=== PATIENT | female | born 1970 | race Caucasian/White ===

== ENCOUNTER → 2020-06-24 | Outpatient (CLI) | payer BC | LOC: M LABSMTC 13:46 | PROVIDERS: ATTEND Family Medicine | DX: Z20.822 Contact with and (suspected) exposure to COVID-19 (principal) ==

== ENCOUNTER → 2020-06-28 | Outpatient (CLI) | payer SELFPAY | LOC: M LABSMTC 12:49 | PROVIDERS: ATTEND Pediatrics | DX: Z20.828 Contact with and (suspected) exposure to other viral communicable diseases (principal) ==

== ENCOUNTER → 2020-11-10 | Outpatient (CLI) | payer BC ==
--- NOTE | 2020-11-10 09:36 | REP ---
INDICATION: PAIN,ACHILLES TENDINITIS COMPARISON: None. TECHNIQUE: AP, lateral, bilateral oblique views right foot. FINDINGS: The osseous structures and joint spaces are intact and normal. There is no evidence for acute fracture or dislocation. Surrounding soft tissues are unremarkable. No subcutaneous emphysema or radiodense foreign body. Lateral view demonstrates calcification at the Achilles tendinous insertion on the calcaneus. IMPRESSION: Subtle Achilles calcification at the insertion on the calcaneus. <Electronically signed by Vamsi Soares > 11/10/20 [id number]
== END ==
LOC: M WUC 09:08
PROVIDERS: ATTEND Physician Assistant
DX: M65.271 Calcific tendinitis, right ankle and foot (principal)

== ENCOUNTER → 2020-11-13 | Outpatient (CLI) | payer BC ==
--- NOTE | 2020-11-13 09:27 | REPVR ---
PROCEDURE INFORMATION: Exam: MR Right Lower Extremity Joint Without Contrast; Ankle Exam date and time: 11/13/2020 8:46 AM Age: 50 years old Clinical indication: Pain; Ankle; Right; Additional info: ? Achiles tendon tear, calcaneal spur, right foot TECHNIQUE: Imaging protocol: MR of the Right lower extremity without contrast. Exam focused on the ankle. COMPARISON: CR FOOT COMPLETE 11/10/2020 9:22 AM FINDINGS: Bones and cartilage: Sub adjacent bone marrow edema in the calcaneal tuberosity. Mild focal bone marrow edema involving anterior distal fibula. Joint spaces: No joint effusion. Bursae: There is retrocalcaneal bursitis. LIGAMENTS: Distal tibiofibular syndesmosis: Unremarkable. No tear. Anterior talofibular ligament: Unremarkable. No tear. Posterior talofibular ligament: Unremarkable. No tear. Calcaneofibular ligament: Unremarkable. No tear. Deltoid ligament complex: Unremarkable. No tear. TENDONS: Flexor tendons of foot: Unremarkable as visualized. Tibialis posterior tendon: Unremarkable as visualized. Peroneal tendons: Unremarkable as visualized. Extensor tendons of foot: Unremarkable as visualized. Tibialis anterior tendon: Unremarkable as visualized. Achilles tendon: Longitudinal partial tear of distal Achilles at the insertion. Retro Achilles inflammation and inflammation of the pre Achilles fat is noted. Tarsal canal (Sinus tarsi): Unremarkable. Normal signal of the fat. Tarsal tunnel: Unremarkable. Muscles: Unremarkable. Soft tissues: Unremarkable. Plantar fascia: There is mild insertional enthesopathy involving medial cord of the plantar fascia. IMPRESSION: Longitudinal partial tear of distal Achilles at the insertion with sub adjacent bone marrow edema at the calcaneal tuberosity. Retrocalcaneal bursitis. Retro Achilles inflammation and inflammation of the pre Achilles fat. Mild insertional enthesopathy involving medial cord of the plantar fascia. Electronically signed by: Kevin Hicks On 11/13/2020 09:27:27 AM
== END ==
LOC: M RAD 08:08
PROVIDERS: ATTEND Physician Assistant Surgical
DX: M77.31 Calcaneal spur, right foot (principal); S86.011A Strain of right Achilles tendon, initial encounter; X58.XXXA Exposure to other specified factors, initial encounter; Y92.9 Unspecified place or not applicable; M76.61 Achilles tendinitis, right leg

== ENCOUNTER → 2020-12-07 | Outpatient (CLI) | payer BC ==
[2020-12-07 18:48] LABS: ALBUMIN 4.2 GM/DL (3.2-5.2); ALT/SGPT 25 U/L (12-78); BILIRUBIN,TOTAL 0.5 MG/DL (0.2-1.0); BLOOD UREA NITROGEN 10 MG/DL (7-18); CARBON DIOXIDE LEVEL 28 MEQ/L (21-32); CHLORIDE LEVEL 104 MEQ/L (98-107); CHOLESTEROL LEVEL 207 MG/DL (<200); CHOLESTEROL RISK RATIO 4.404 (<5); CREATININE FOR GFR 0.62 MG/DL (0.55-1.30); FREE T4 0.82 NG/DL (0.76-1.46); GLOMERULAR FILTRATION RATE > 60.0 (>58); GLUCOSE, FASTING 84 MG/DL (70-100); HDL CHOLESTEROL 47 MG/DL (>40); LDL CHOLESTEROL 138 MG/DL (<100); NON-HDL-C 160 MG/DL; POTASSIUM SERUM 4.4 MEQ/L (3.5-5.1); SODIUM LEVEL 140 MEQ/L (136-145); TOTAL PROTEIN 7.2 GM/DL (6.4-8.2); TRIGLYCERIDES LEVEL 110 MG/DL (<150)
== END ==
LOC: M WUC 11:57
PROVIDERS: ATTEND Nurse Practitioner Family
DX: N95.1 Menopausal and female climacteric states (principal); Z00.00 Encounter for general adult medical examination without abnormal findings

== ENCOUNTER → 2021-01-16 | Outpatient (REF) | payer BC | LOC: M LAB REF 19:24 | PROVIDERS: ATTEND Nurse Practitioner Family | DX: Z12.4 Encounter for screening for malignant neoplasm of cervix (principal) | CPT/HCPCS: 87624; G0123 ==

== ENCOUNTER → 2021-06-20 | Outpatient (CLI) | payer BC ==
--- NOTE | 2021-06-20 12:51 | REPVR ---
PROCEDURE INFORMATION: Exam: MR Lumbar Spine Without Contrast Exam date and time: 06/20/2021 11:09 AM Age: 50 years old Clinical indication: Low back pain; Prior surgery; Surgery date: 6+ months; Additional info: Radiculopathy, lumbosacral region TECHNIQUE: Imaging protocol: Multiplanar magnetic resonance images of the lumbar spine without intravenous contrast. COMPARISON: No relevant prior studies available. FINDINGS: Vertebrae: The lumbar vertebral bodies are normal in height,signal intensity and alignment.No acute fracture or dislocation is seen. Spinal epidural space: There is no evidence of epidural masses or hemorrhage. Spinal cord: The conus medullaris is normal. L1-L2: There is no significant degenerative disc herniation.The spinal canal and neural foramina are patent and without significant stenosis. L2-L3: There is no significant degenerative disc herniation.The spinal canal and neural foramina are patent and without significant stenosis. L3-L4: There is a mild diffuse posterior bulge causing mild effacement of the thecal sac.The facet joints demonstrate mild degenerative hypertrophy and sclerosis.There is no evidence of spinal canal narrowing. There is mild bilateral foraminal stenosis. L4-L5: Markedly reduced in height and T2 signal indicating degeneration. Severe degenerative endplate changes. Small diffuse posterior herniation. Moderate facet arthropathy. Right hemilaminectomy.There is thickening of the ligamentum flavum.There is no evidence of spinal canal narrowing. There is mild right foraminal stenosis. There is moderate left foraminal stenosis. L5-S1: Mildly reduced in height and T2 signal indicating degeneration. Mild degenerative endplate changes. Moderate posterior central herniation. Severe facet arthropathy.There is moderate spinal canal stenosis, with an AP canal dimension of 8 mm. There is mild left foraminal stenosis. There is moderate right foraminal stenosis. Soft tissues: The prevertebral soft tissues appear normal. IMPRESSION: MRI of the lumbar spine reveals multilevel degenerative spondylitic changes and degenerative disc disease as described above. Electronically signed by: Arnel Wilder On 06/20/2021 12:50:56 PM
== END ==
LOC: M PLAIMG 10:08
PROVIDERS: ATTEND Physician Assistant Surgical
DX: M54.17 Radiculopathy, lumbosacral region (principal); M51.26 Other intervertebral disc displacement, lumbar region; M48.07 Spinal stenosis, lumbosacral region

== ENCOUNTER → 2022-03-23 | Outpatient (CLI) | payer BC, OTHER | LOC: M PAIN 08:30 | PROVIDERS: ATTEND Nurse Practitioner Family | DX: M96.1 Postlaminectomy syndrome, not elsewhere classified (principal); G89.29 Other chronic pain; F17.200 Nicotine dependence, unspecified, uncomplicated; E66.01 Morbid (severe) obesity due to excess calories; Z68.43 Body mass index [BMI] 50.0-59.9, adult; Z79.899 Other long term (current) drug therapy ==

== ENCOUNTER → 2022-04-19 | Outpatient (CLI) | payer BC, OTHER ==
[2022-04-19 08:31] LABS: HEMATOCRIT 47.8 % (36.0-47.0); HEMOGLOBIN 15.9 g/dl (12.0-15.5); MEAN CORPUSCULAR HEMOGLOBIN 32.7 pg (27.0-33.0); MEAN CORPUSCULAR HGB CONC 33.3 g/dl (32.0-36.5); MEAN CORPUSCULAR VOLUME 98.4 fl (80.0-96.0); PLATELET COUNT, AUTOMATED 290 10^3/uL (150-450); RED BLOOD COUNT 4.86 10^6/uL (4.00-5.40); WHITE BLOOD COUNT 7.3 10^3/uL (4.0-10.0)
[2022-04-19 09:34] LABS: BLOOD UREA NITROGEN 9 MG/DL (7-18); CALCIUM LEVEL 8.9 MG/DL (8.5-10.1); CARBON DIOXIDE LEVEL 28 MEQ/L (21-32); CHLORIDE LEVEL 108 MEQ/L (98-107); CREATININE FOR GFR 0.68 MG/DL (0.55-1.30); GLOMERULAR FILTRATION RATE > 60.0 (>51); GLUCOSE, FASTING 106 MG/DL (70-100); POTASSIUM SERUM 4.4 MEQ/L (3.5-5.1); SODIUM LEVEL 140 MEQ/L (136-145)
== END ==
LOC: M EKG 07:52
PROVIDERS: ATTEND Podiatrist
DX: M76.61 Achilles tendinitis, right leg (principal); M72.2 Plantar fascial fibromatosis; M79.671 Pain in right foot

== ENCOUNTER → 2022-04-24 | Outpatient (CLI) | payer BC, OTHER | LOC: M LABSMTC 10:02 | PROVIDERS: ATTEND Anesthesiology | DX: Z01.812 Encounter for preprocedural laboratory examination (principal); Z11.52 Encounter for screening for COVID-19 ==

== ENCOUNTER 2022-04-27 10:29 | Day surgery (SDC) | payer BC, OTHER ==
[~2022-04-27] VITALS: Ht 162.6 cm; Wt 97.5 kg
[~2022-04-27 10:29] MED LIST: DESFLURANE 240 ML INHALANT As Ordered ONE; LIDOCAINE 2% 100MG/5ML SDV (FOR ANES.) As Ordered ONE; MIDAZOLAM INJ 2MG/2ML VIAL (J2250 PER 1MG) As Ordered ONE; ONDANSETRON 4MG 2ML VIAL As Ordered ONE; ceFAZolin SOD 2 GM in IV 1 EA IV ONE; dexameTHASONE 4 MG/ML 1ML VIAL (J1100 PER 1MG) As Ordered ONE; propofoL 500 MG/50 ML VIAL As Ordered ONE
[2022-04-27] MEDS ORDERED: dexameTHASONE 4 MG/ML 1ML VIAL (J1100 PER 1MG) As Ordered ONE (10:59)
[2022-04-27] MEDS ORDERED: BUPIVACAINE HCL 0.5% 30ML VIAL As Ordered ONE (10:59)
[2022-04-27] MEDS ORDERED: GENTAMICIN SULF 80MG/2ML VIAL As Ordered ONE (10:59)
[2022-04-27] MEDS ORDERED: LIDOCAINE 2% MDV 20ML VIAL As Ordered ONE (10:59)
[2022-04-27] MEDS ORDERED: propofoL 200 MG/20 ML VIAL As Ordered ONE ×2 (12:19→12:56)
[2022-04-27] MEDS ORDERED: ONDANSETRON 4MG 2ML VIAL IV PRN (13:20)
[2022-04-27] MEDS ORDERED: oxyCODONE 5MG TAB PO PRN (13:20)
[2022-04-27] MEDS ORDERED: fentaNYL 100 MCG/2 ML INJECTION IV PRN (13:20)
[2022-04-27] MEDS ORDERED: METOCLOPRAMIDE INJ 10MG/2ML VIAL (J2765 PER 1) IV PRN (13:20)
[2022-04-27 17:15] VITALS: BP 133/86
== END 2022-04-27 17:17 | disposition home or self-care (01) ==
LOC: M SDC 10:29
PROVIDERS: ATTEND Podiatrist
DX: M72.2 Plantar fascial fibromatosis (principal); M76.61 Achilles tendinitis, right leg; M77.31 Calcaneal spur, right foot; F17.210 Nicotine dependence, cigarettes, uncomplicated
CPT/HCPCS: 28119; 29893; 73630; 76000; 81025; 88300; C1713; J0690; J1100; J1580; J2250; J2405

== ENCOUNTER → 2022-12-04 | Outpatient (CLI) | payer BC, OTHER ==
[2022-12-04 10:36] LABS: ALBUMIN 3.9 G/DL (3.2-5.2); ALKALINE PHOSPHATASE 78 U/L (46-116); ALT/SGPT 30 U/L (7.0-40); AST/SGOT 17 U/L (<34); BILIRUBIN,TOTAL 0.8 MG/DL (0.3-1.2); BLOOD UREA NITROGEN 12 MG/DL (9-23); CALCIUM LEVEL 8.7 MG/DL (8.5-10.1); CARBON DIOXIDE LEVEL 27 MMOL/L (20-31); CHLORIDE LEVEL 108 MMOL/L (98-107); CHOLESTEROL LEVEL 186 MG/DL (<200); CHOLESTEROL RISK RATIO 3.76 (<5); GLOMERULAR FILTRATION RATE > 60.0 (>51); GLUCOSE, FASTING 100 MG/DL (60-100); HDL CHOLESTEROL 49.4 MG/DL (>40); LDL CHOLESTEROL 120.4 MG/DL (<100); NON-HDL-C 136.6 MG/DL; POTASSIUM SERUM 4.4 MMOL/L (3.5-5.1); SODIUM LEVEL 141 MMOL/L (136-145); TOTAL PROTEIN 6.4 G/DL (5.7-8.2); TRIGLYCERIDES LEVEL 81 MG/DL (<150)
== END ==
LOC: M WUC 08:27
PROVIDERS: ATTEND Nurse Practitioner Family
DX: Z00.00 Encounter for general adult medical examination without abnormal findings (principal)

== ENCOUNTER → 2023-12-12 | Outpatient (CLI) | payer BC ==
[2023-12-12 11:22] LABS: ALBUMIN 3.8 G/DL (3.2-5.2); ALKALINE PHOSPHATASE 73 U/L (46-116); ALT/SGPT 23 U/L (7.0-40); AST/SGOT 10 U/L (<34); BILIRUBIN,TOTAL 0.8 MG/DL (0.3-1.2); BLOOD UREA NITROGEN 11 MG/DL (9-23); CALCIUM LEVEL 8.9 MG/DL (8.5-10.1); CARBON DIOXIDE LEVEL 29 MMOL/L (20-31); CHLORIDE LEVEL 106 MMOL/L (98-107); CHOLESTEROL LEVEL 176 MG/DL (<200); CHOLESTEROL RISK RATIO 3.93 (<5); CREATININE FOR GFR 0.67 MG/DL (0.55-1.30); GLOMERULAR FILTRATION RATE > 60.0 (>51); GLUCOSE, FASTING 80 MG/DL (60-100); HDL CHOLESTEROL 44.7 MG/DL (>40); LDL CHOLESTEROL 116.3 MG/DL (<100); NON-HDL-C 131.3 MG/DL; POTASSIUM SERUM 4.4 MMOL/L (3.5-5.1); SODIUM LEVEL 140 MMOL/L (136-145); TOTAL PROTEIN 6.4 G/DL (5.7-8.2); TRIGLYCERIDES LEVEL 75 MG/DL (<150)
== END ==
LOC: M WUC 08:55
PROVIDERS: ATTEND Nurse Practitioner Family
DX: E78.5 Hyperlipidemia, unspecified (principal)

== ENCOUNTER → 2024-10-13 | Outpatient (CLI) | payer BC ==
[2024-10-13 07:08] LABS: BASO # 0.1 10^3/uL (0.0-0.2); BASO % 0.8 % (0.0-1.0); EOS # 0.2 10^3/uL (0.0-0.5); EOS % 1.9 % (0.0-3.0); HEMATOCRIT 44.5 % (36.0-47.0); HEMOGLOBIN 14.9 g/dl (12.0-15.5); LYMPH # 2.2 10^3/uL (1.5-5.0); LYMPH % 27.7 % (24.0-44.0); MEAN CORPUSCULAR HEMOGLOBIN 32.9 pg (27.0-33.0); MEAN CORPUSCULAR HGB CONC 33.5 g/dl (32.0-36.5); MEAN CORPUSCULAR VOLUME 98.2 fl (80.0-96.0); MONO # 0.9 10^3/uL (0.0-0.8); NEUTROPHILS # 4.5 10^3/uL (1.5-8.5); NEUTROPHILS % 58.1 % (36.0-66.0); PLATELET COUNT, AUTOMATED 249 10^3/uL (150-450); RED BLOOD COUNT 4.53 10^6/uL (4.00-5.40); WHITE BLOOD COUNT 7.8 10^3/uL (4.0-10.0)
[2024-10-13 07:37] LABS: IRON (FE) 114 UG/DL (50-170); PERCENT SATURATION 40.3 % (13.2-45.0); TOTAL IRON BINDING CAPACITY 283 UG/DL (250-425)
[2024-10-13 07:38] LABS: ALBUMIN 3.6 G/DL (3.2-5.2); ALKALINE PHOSPHATASE 65 U/L (35-104); ALT/SGPT 32 U/L (7.0-40); AST/SGOT 18 U/L (<34); BILIRUBIN,TOTAL 0.5 MG/DL (0.3-1.2); BLOOD UREA NITROGEN 16 MG/DL (9-23); CALCIUM LEVEL 8.9 MG/DL (8.5-10.1); CARBON DIOXIDE LEVEL 28 MMOL/L (20-31); CHLORIDE LEVEL 109 MMOL/L (98-107); CREATININE FOR GFR 0.65 MG/DL (0.55-1.30); FERRITIN 46.5 NG/ML (7.3-270.7); FOLATE 20.9 NG/ML (>5.4); FOLLICLE STIMULATING HORMONE 50.9 mIU/ML; GLOMERULAR FILTRATION RATE > 90.0 (>51); GLUCOSE, FASTING 110 MG/DL (60-100); LUTEINIZING HORMONE 56.8 mIU/ML; MAGNESIUM LEVEL 1.9 MG/DL (1.8-2.4); POTASSIUM SERUM 4.7 MMOL/L (3.5-5.1); SODIUM LEVEL 143 MMOL/L (136-145); THYROID PEROXIDASE ANTIBODY 30 U/ML (<60.0); THYROID STIMULATING HORMONE 1.454 uIU/ML (0.55-4.78); TOTAL 25(OH) VITAMIN D 34.4 NG/ML (20.0-100.0); TOTAL PROTEIN 6.4 G/DL (5.7-8.2)
[2024-10-13 07:39] LABS: ESTRADIOL < 19.0 PG/ML; FREE T4 0.97 NG/DL (0.89-1.76); PROLACTIN 8.08 NG/ML
[2024-10-13 07:40] LABS: VITAMIN B12 LEVEL 280 PG/ML (211-911)
== END ==
LOC: M LAB 06:38
PROVIDERS: ATTEND Nurse Practitioner Family
DX: N95.1 Menopausal and female climacteric states (principal); R53.83 Other fatigue